=== PATIENT | female | born 1940 | race Caucasian/White ===

== ENCOUNTER 2018-01-12 20:06 | Emergency (ER) | payer OTHER ==
[2018-01-12] MEDS: ONDANSETRON HCL/PF 4 MG/ 2ML VIAL IVP ONE (20:40)
--- NOTE | 2018-01-12 20:42 | ED Physician Documentation ---
Abdominal Pain - HISTORIAN Historian: patient, child - HPI Stated Complaint: N/V Chief Complaint: Abdominal Pain Additonal Information: n/e onset 2 d ago eaten very little since dt emesis all food fluids. ate warmed up moldovan approx 20 hrs prior to onset. pt and john say sl more confused than prev but appears quite alert and oriented and ess good historian. also no bm since onset nausea and usually has bm qod Onset: days ago (2) Duration: waxing, waning Timing: other (just not better) Context: bad food (possibly. no known exposure to persons w similar). denies: out of country travel Severity: moderate Quality: pain (lt upper aabd quadrant) Associated Symptoms: nausea, vomiting. denies: coffee ground emesis, bloody emesis, diarrhea Exacerbated by: food Relieved by: remaining still. denies: food Further Comments: yes (is diabetic no insulin today) - ROS CONST: other (as above) GI/: dark urine. denies: black stools, bloody urine, bloody stools, problems urinating CVS/RESP: none. denies: palpitations, shortness of breath, hurts to breath, cough MS/SKIN/LYMPH: none NEURO/PSYCH: none - SOCIAL HX Smoking History: less than 1 pack/day Alcohol Use: none Drug Use: none - FAMILY HX Family History: no significant history - PAST HX Past History: other (DM HTN DJD HI CHOL DEPRESSION INT CONFUSION) Surgeries/Procedures: other (CABG X 3 KNEE REPL) Home Medications: Ambulatory Orders Medication Instructions Recorded Aspirin [Yon] 81 mg PO DAILY 01/12/18 Calcium Carbonate [Calcium] 600 mg PO DAILY 01/12/18 Cholecalciferol [Vitamin D-3] 5,000 unit PO DAILY 01/12/18 Docusate Sodium [Colace] 100 mg PO DAILY PRN 01/12/18 Furosemide [Lasix] 20 mg PO DAILY 01/12/18 Lisinopril [Zestril] 10 mg PO DAILY 01/12/18 Allergies/Adverse Reactions: Allergies Allergy/AdvReac Type Severity Reaction Status Date / Time No Known Drug Allergies Allergy Verified 01/12/18 20:31 - VITAL SIGNS Vital Signs: Vital Signs Temp Pulse Resp BP Pulse Ox 97.9 F 76 18 173/78 92 01/12/18 20:06 01/12/18 20:06 01/12/18 20:06 01/12/18 20:06 01/12/18 20:06 - REVIEWED ASSESSMENTS Nursing Assessment Reviewed: Yes Vitals Reviewed: Yes ED Results Lab/Radiology - Lab Results Lab Results: Lab Results 01/12/18 01/12/18 01/12/18 21:01 21:01 21:00 WBC 6.10 K/ul K/ul (4.00-12.00) RBC 4.78 M/ul M/ul (3.90-5.20) Hgb 13.7 g/dL g/dL (12.0-16.0) Hct 41.6 % % (34.5-46.5) MCV 87.1 fl fl (80.0-100.0) MCH 28.8 pg pg (28.0-34.0) MCHC 33.0 g/dL g/dL (30.0-36.0) RDW 13.6 % % (11.3-14.3) Plt Count 171 K/mm3 K/mm3 (130-400) Neut % (Auto) 83.9 % H % (39.0-79.0) Lymph % (Auto) 11.2 % L % (16.0-50.0) [place] % (Auto) 2.8 % % (0.0-11.0) Eos % (Auto) 1.3 % % (0.0-6.8) Baso % (Auto) 0.2 (0.0-1.5) Neut # (Auto) 5.1 # k/uL # k/uL (1.4-7.7) Lymph # (Auto) 0.7 # k/uL # k/uL (0.6-4.0) [place] # (Auto) 0.2 # k/uL # k/uL (0.0-0.9) Eos # (Auto) 0.1 # k/uL # k/uL (0.0-0.6) Baso # (Auto) 0.0 # k/uL # k/uL (0.0-0.5) Reactive Lymphs % 0.6 % % (0.0-5.0) Reactive Lymphs # 0.0 # k/uL # k/uL (0.0-0.8) Sodium 135 mmol/L L mmol/L (136-145) Potassium 4.7 mmol/L mmol/L (3.5-5.1) Chloride 94 mmol/L L mmol/L (98-107) Carbon Dioxide 31 mmol/L H mmol/L (22-30) BUN 15 mg/dL mg/dL (7-17) Creatinine 0.70 mg/dL mg/dL (0.52-1.04) Estimated Creat Clear 113 Est GFR ( Amer) > 60 (60 - ) Est GFR (Non-Af Amer) > 60 (60 - ) Glucose 199 mg/dL H mg/dL (74-106) Calcium 9.6 mg/dL mg/dL (8.4-10.2) Total Bilirubin 1.3 mg/dL mg/dL (0.2-1.3) AST 51 U/L H U/L (15-46) ALT 38 U/L U/L (13-69) Alkaline Phosphatase 103 U/L U/L (38-126) Total Protein 7.1 g/dL g/dL (6.3-8.2) Albumin 3.9 g/dL g/dL (3.5-5.0) Lipase 17 U/L L U/L (23-300) - Orders Orders: ED Orders Category Date Time Status Place IV Lock 1T Care 01/12/18 20:38 Active ABD SERIES PA CHEST [RAD] Stat Exams 01/12/18 Taken CBC/PLATELET/DIFF Routine Lab 01/12/18 21:01 Completed CMP Routine Lab 01/12/18 21:01 Completed LIPASE Stat Lab 01/12/18 21:00 Completed URINALYSIS Routine Lab 01/12/18 Ordered 0.9 % Sodium Chloride [Normal Saline] 1,000 ml Med 01/12/18 21:00 Ordered IV Q10H Bisacodyl [Dulcolax] Med 01/12/18 22:29 Discontinued 10 mg RC .STK-MED ONE Bisacodyl [Dulcolax] Med 01/12/18 23:15 Once 10 mg RC NOW ONE Ondansetron HCl Rapdis [Zofran Odt] Med 01/12/18 23:16 Once 4 mg PO TAKE HOME ONE Ondansetron HCl/Pf [Zofran 4 mg/2 ml] Med 01/12/18 20:37 Discontinued 4 mg IVP NOW ONE Abdominal Pain Physical Exam - Physical Exam General Appearance: mild distress. No: anxious, lethargic EENT: eye inspection normal NECK: normal inspection, thyroid normal. No: carotid bruit RESPIRATORY: no resp distress, chest non-tender, breath sounds normal. No: wheezes, rales, rhonchi CVS: reg rate & rhythm, heart sounds normal ABDOMEN: soft, tenderness (ULQ), decreased BS SKIN: warm/dry, normal color. No: cyanosis, diaphoresis, jaundice EXTREMITIES: non-tender, normal range of motion, no edema NEURO: oriented X3, motor nml, sensation nml, mood/affect nml Vital Signs: Vital Signs Temp Pulse Resp BP Pulse Ox 97.9 F 76 18 173/78 92 01/12/18 20:06 01/12/18 20:06 01/12/18 20:06 01/12/18 20:06 01/12/18 20:06 Discharge Clincal Impression: un dx abd pain, xs gas feces, dehydration Referrals: Mercedez March MD [Primary Care Provider] - 2 Days Comments: home dulcolax=-john will adm and stay w/pt Condition: Good Disposition: 01 HOME, SELF-CARE Decision to Admit: NO Decision Time: 23:18
[2018-01-12 21:06] LABS: BASOPHILS % 0.2 (0.0-1.5); EOSINOPHILS % 1.3 % (0.0-6.8); MEAN CORPUSCULAR HEMOGLOBIN 28.8 pg (28.0-34.0); MEAN CORPUSCULAR VOLUME 87.1 fl (80.0-100.0); MONOCYTES % 2.8 % (0.0-11.0); NEUTROPHILS # 5.1 # k/uL (1.4-7.7)
[2018-01-12] MEDS: 0.9 % SODIUM CHLORIDE 1,000 ML IV SCH (21:20)
[2018-01-12 21:35] LABS: eGFR (African) > 60; eGFR (Non-African) > 60
[2018-01-12] MEDS: BISACODYL 10 MG SUPP.RECT RC ONE ×2 (22:59→23:19)
[2018-01-12] MEDS: ONDANSETRON HCL 4 MG TAB.RAPDIS ONE (23:20)
[2018-01-12] MEDS: ONDANSETRON HCL 4 MG TAB.RAPDIS PO ONE (23:20)
[2018-01-12 23:50] VITALS: BP 185/95
[2018-01-12] MEDS: 0.9 % SODIUM CHLORIDE 1,000 ML IV ONE (23:50)
--- NOTE | 2018-01-13 06:45 | Diagnostic Imaging Report ---
LINO MOLINA [facility] [address] [facility] [address] [address] Report Submission Date: Jan 12, 2018 9:38:36 PM CDT Patient Study Name: SILVESTRE OCHOA Date: Jan 12, 2018 9:14:10 PM CDT Modality Type: DX Gender: F Description: ABDOMEN : 40 Institution: [facility] Physician: LINO MOLINA Abdominal obstructive series with AP chest History: Abdominal pain and nausea. Findings: The heart size is normal. There is atherosclerosis of the aorta. Wire sternal sutures are in place. The lungs are hyperinflated. No acute infiltrate. No pleural effusion or pneumothorax. The bowel gas pattern is normal without evidence of obstruction. Mild retained stool is present. There is levoscoliosis and lumbar spine with multilevel degenerative change. There is extensive vascular calcifications. Impression: 1. No acute pulmonary disease. 2. Nonobstructive bowel gas pattern. Electronically signed on Jan 12, 2018 9:38:36 PM CDT by: Roldan ARMENTA
[2018-01-13 06:59] LABS: APPEARANCE,URINE CLEAR (CLEAR); COLOR,URINE AMBER (YELLOW); OCCULT BLOOD,URINE NEGATIVE (NEGATIVE); PH URINE 8.5 (5.0 - 8.0); UROBILINOGEN URINE 0.2 Eu (0.2-1.0)
== END 2018-01-12 23:21 | disposition home or self-care (01) ==
LOC: ED 20:06
DX: E86.0 Dehydration (principal); R10.9 Unspecified abdominal pain; R14.0 Abdominal distension (gaseous); E11.9 Type 2 diabetes mellitus without complications; I10 Essential (primary) hypertension; E78.5 Hyperlipidemia, unspecified; F17.210 Nicotine dependence, cigarettes, uncomplicated
CPT/HCPCS: 74022; 80053; 81002; 83690; 85025; A9270; J2405; J7030; 96360; 96374; 99283; S1016

== ENCOUNTER 2018-01-18 18:00 | Inpatient (IN) | payer OTHER ==
[2018-01-18] MEDS ORDERED: DOCUSATE SODIUM 100 MG CAPSULE PO PRN (18:56)
[2018-01-18] MEDS ORDERED: IPRATROPIUM BROMIDE 0.2 MG IH SCH (19:00)
[2018-01-18] MEDS ORDERED: IPRATROPIUM/ALBUTEROL SULFATE 3 ML AMPUL.NEB NEB PRN (19:04)
--- NOTE | 2018-01-18 19:10 | History and Physical Report ---
History of Present Illnes - History of Present Illness Reason for Visit: Weakness History of Present Illness: Patient was seen in clinic last week for progressive weakness for past few months as well as some falls. The patient, her daughter, and I decided we would try to do home health. If that failed, next step would be admission to [facility]. She had been seen in the ER for constipation. She went home and ended up having a TIA. She was tranported to [facility] with L facial droop and slurred speech. CT showed old lacunar infarct that was not consistent with patient symptoms. MRI was negative for acute event. SABA/bubble study normal. She was started on ASA and lipitor. Insulin was adjusted for BS control with here DM. MRA of neck showed 50% stenosis of R ICA and less than 50% of L ICA. ABCD2 score was 7 (17% risk in next 90 days). Given lack of significant atherosclerosis, they did not initiate dual antiplatelet therapy. Neurology f/u in 4 weeks. Her atenolol was discontinued because she had 1st degree AV block and bradycardia. They want her to f/u with Dr. Weinstein in several weeks. Lisinopril was increased from 10 to 20 mg. Chronic lasix therapy continued. - Past Medical History Cardiac: CAD, CHF (HFpEF), HTN, Hyperlipidemia Pulmonary: COPD Endocrine: Diabetes, Osteoporosis, Other (Vitamin D deficiency) - Past Surgical History Past Surgical History: CABG (x3 in 2001), Cataract Removal, Hysterectomy, Other (Back surgery), Total Knee Replacement (L), Other (B CTR) - Past Family History Mother Family History: CAD, Father Family History: - Past Social History Smoke: 1 pack per day, Quit (1 week ago) Alcohol: None Drugs: None Lives: Alone Domestic Violence: Negative - Health Maintenance Health Maintenance: Cholesterol, Influenza Vaccine, Pneumococcal Vaccine, DEXA. denies: Colonoscopy Influenza Vaccine: Current for this Influenza Season Pneumonia Vaccine: Yes Resuscitation Status: Resusciation Status Resuscitation Status Full Code Review of Systems - Review of Systems Constitutional: Weakness. negative: Fever Eyes: negative: pain ENT: negative: Ear Pain, Nose Congestion Respiratory: negative: Cough, Shortness of Breath Cardiovascular: negative: Chest Pain, Palpitations Gastrointestinal: negative: Nausea, Vomiting, Abdominal Pain, Constipation Genitourinary: negative: Dysuria, Frequency Musculoskeletal: negative: Neck Pain Skin: negative: Rash Neurological: Weakness - Medications/Allergies Allergies/Adverse Reactions: Allergies Allergy/AdvReac Type Severity Reaction Status Date / Time No Known Drug Allergies Allergy Verified 01/12/18 20:31 Home Medications: Home Medications Acetaminophen [Tylenol] 650 mg PO Q4 PRN 01/18/18 Alendronate Sodium [Fosamax] 70 mg PO WEEK 01/18/18 Ferrous Sulfate [Feosol] 325 mg PO DAILY 01/18/18 Insulin Glargine,Hum.rec.anlog [Lantus Solostar] 15 units INJ HS 01/18/18 Polyethylene Glycol 3350 [Miralax] 17 gm PO 1100 01/18/18 Sennosides/Docusate Sodium [Docusate Sodium-Senna Tablet] 1 tab PO BID 01/18/18 Current Inpatient Medications: Current Inpatient Medications Acetaminophen (Tylenol) 650 mg PO Q4 PRN PRN Reason: PAIN Albuterol/Ipratropium (Duoneb) 3 ml NEB Q4 PRN PRN Reason: Wheezing Alendronate Sodium (Fosamax) 70 mg PO WEEK [facility] Aspirin (Aspirin) 81 mg PO DAILY [facility] Atorvastatin Calcium (Lipitor) 40 mg PO HS [facility] Calcium/Vitamin D (Caltrate With Vit D-3) 1 each PO DAILY [facility] Cholecalciferol (Vitamin D-3) 1,000 unit PO DAILY [facility] Docusate Sodium (Colace) 100 mg PO DAILY PRN PRN Reason: DIRECTED BY 'S ORDER Enoxaparin Sodium (Lovenox) 40 mg SQ QD [facility] Stop: 02/01/18 19:59 Ferrous Sulfate (Feosol) 325 mg PO 1100 [facility] Furosemide (Lasix) 20 mg PO DAILY [facility] Insulin Detemir (Levemir Flex-Pen) 15 unit SQ HS [facility] Lisinopril (Prinivil) 20 mg PO DAILY [facility] Miscellaneous (Chem Sticks) 1 each CHEMX2 [facility] Multivitamins (Tab-A-[place]) 1 each PO DAILY [facility] Paroxetine HCl (Paxil) 20 mg PO DAILY [facility] Polyethylene Glycol (Miralax) 17 gm PO 1100 [facility] Senna/Docusate Sodium (Senna Plus Tablet) each PO BID [facility] Exam - Exam Vital Signs: Vital Signs (72 hours) 01/18/18 18:21 Temperature 97.9 F Pulse Rate [ 64 Left Pulse ox] Respiratory 20 Rate Blood Pressure 177/79 [Left Arm] O2 Sat by Pulse 91 L Oximetry General: Alert, Oriented to Person, Oriented to Place, Oriented to Time, Cooperative, No acute distress HEENT: Atraumatic, PERRLA, EOMI, Mouth Mucous membr. moist/[place] Neck: Normal Range of Motion Lungs: Clear to auscultation, Normal air movement, Speaks full Sentences Cardiovascular: Regular rate Abdomen: Normal bowel sounds, Soft, No tenderness Integumentary: Normal Extremities: No edema Neurological: Cranial nerves 3-12 NL, Reflexes 2+, Generalized Weakness Psych/Mental Status: Mental status NL, Mood NL, Appropriate Affect, Intact Judgment Assessment/Plan - Assessment/Plan (1) Weakness Status: Acute Current Visit: Yes Plan: Will admit to SNF for PT/OT. Patient tells me her family plans to move her to [facility] when she is discharged from here. (2) TIA (transient ischemic attack) Status: Acute Current Visit: Yes Qualifiers: Transient cerebral ischemia type: unspecified Qualified Code(s): G45.9 - Transient cerebral ischemic attack, unspecified Plan: Patient at high risk for another TIA. Will continue ASA and lipitor. Work to control BP and BS. She has quit smoking last week - will continue to encourage patient to refrain from smoking. She reports gum and patches have not helped in the past. (3) Diabetes mellitus Status: Chronic Current Visit: No Qualifiers: Diabetes mellitus type: type 2 Diabetes mellitus complication status: with unspecified complications Diabetes mellitus truck terminal manager insulin use: with snf use Qualified Code(s): E11.8 - Type 2 diabetes mellitus with unspecified complications; Z79.4 - termite control service representative (current) use of insulin; Z79.4 - senior care ( current) use of insulin; Z79.4 - termite control service representative (current) use of insulin; Z79.4 - senior care (current) use of insulin Plan: Will monitor BS. Hold off SSI for now. (4) HTN (hypertension) Status: Chronic Current Visit: Yes Qualifiers: Hypertension type: essential hypertension Qualified Code(s): I10 - Essential (primary) hypertension Plan: Watch BP closely. Add chlorthalidone if needed. Plan to see cardiology in 2 weeks in follow up. VTE Assessment - RISK FACTOR SCORE VTE RISK FACTOR SCORES: AGE OVER 60 YEARS, SMOKER - RISK VTE MODERATE RISK: SCORE OF 2 (RISK PROXIMAL DVT 2-4%) PROPHYAXIS NEEDED
[2018-01-18 20:28] VITALS: BMI 29.0
[2018-01-18] MEDS ORDERED: SENNOSIDES/DOCUSATE SODIUM 1 EACH TABLET PO SCH (21:00)
[2018-01-18] MEDS ORDERED: INSULIN GLARGINE HUM REC ANLOG 15 UNIT INJ SCH (21:00)
[2018-01-18] MEDS ORDERED: HALOPERIDOL LACTATE 5 MG/ML VIAL IM ONE ×3 (21:34→21:35)
[2018-01-18] MEDS ORDERED: LORazepam 2 MG/ML VIAL IM ONE (21:58)
[2018-01-18] MEDS ORDERED: LORazepam 2 MG/ML VIAL ONE (21:58)
[2018-01-18] MEDS ORDERED: LORazepam 2 MG/ML VIAL IM PRN (22:00)
[2018-01-18] MEDS: NICOTINE 21mg 1 EACH PATCH.TD24 TD SCH (22:35)
[2018-01-18] MEDS: ATORVASTATIN CALCIUM 80 MG TABLET PO SCH ×2 (22:44→22:46)
[2018-01-18] MEDS: INSULIN DETEMIR 100 UNIT/ML 3ML PEN.INJCTR SQ SCH ×2 (22:45→22:46)
[2018-01-18] MEDS: FERROUS SULFATE 325 MG TABLET PO SCH (22:46)
[2018-01-18] MEDS: ENOXAPARIN SODIUM 40 MG/0.4 ML DISP.SYRIN SQ SCH (22:46)
[2018-01-19] MEDS ORDERED: ASPIRIN EC 81 MG TABLET.DR ONE (04:49)
[2018-01-19] MEDS ORDERED: FERROUS SULFATE 325 MG PO SCH (09:00)
[2018-01-19] MEDS ORDERED: CALCIUM CARBONATE 600 MG PO SCH (09:00)
[2018-01-19] MEDS ORDERED: LISINOPRIL 20 MG PO SCH (09:00)
[2018-01-19] MEDS ORDERED: PAROXETINE HCL 20 MG PO SCH (09:00)
[2018-01-19] MEDS ORDERED: Non-Formulary 1 EACH (Atorvastatin Calcium [Atorvastatin Calcium] 40 MG) PO SCH (09:00)
[2018-01-19] MEDS: ASPIRIN 81 MG CHEW TAB PO SCH (10:09)
[2018-01-19] MEDS: FUROSEMIDE 20 MG TABLET PO SCH (10:10)
[2018-01-19] MEDS: LISINOPRIL 20 MG TABLET PO SCH (10:10)
[2018-01-19] MEDS: MULTIVITAMIN 1 EACH TABLET PO SCH (10:10)
[2018-01-19] MEDS: NICOTINE 21mg 1 EACH PATCH.TD24 TD SCH (10:10)
[2018-01-19] MEDS: PARoxetine HCL 10 MG TABLET PO SCH (10:10)
[2018-01-19] MEDS ORDERED: CALCIUM/VIT D 500MG/200IU TABLET ONE (10:11)
[2018-01-19] MEDS: CHOLECALCIFEROL (VIT D3) 1,000 UNIT TABLET PO SCH (10:11)
[2018-01-19] MEDS: CALCIUM CARB 600MG/VIT D-3 400 1 EACH TABLET PO SCH (10:13)
[2018-01-19] MEDS: FERROUS SULFATE 325 MG TABLET PO SCH (13:00)
[2018-01-19] MEDS: POLYETHYLENE GLYCOL 3350 17 GM POWD.PACK PO SCH (13:04)
[2018-01-19] MEDS: ENOXAPARIN SODIUM 40 MG/0.4 ML DISP.SYRIN SQ SCH (20:26)
[2018-01-19] MEDS: SENNOSIDES/DOCUSATE SODIUM 1 EACH TABLET PO SCH (20:27)
[2018-01-19] MEDS: ATORVASTATIN CALCIUM 80 MG TABLET PO SCH (20:27)
[2018-01-19] MEDS: INSULIN DETEMIR 100 UNIT/ML 3ML PEN.INJCTR SQ SCH (20:28)
[2018-01-19] MEDS: ACETAMINOPHEN 325 MG TABLET PO PRN (20:37)
[2018-01-20] MEDS ORDERED: CALCIUM/VIT D 500MG/200IU TABLET ONE (09:34)
[2018-01-20] MEDS: MULTIVITAMIN 1 EACH TABLET PO SCH (09:37)
[2018-01-20] MEDS: CALCIUM CARB 600MG/VIT D-3 400 1 EACH TABLET PO SCH (09:37)
[2018-01-20] MEDS: CHOLECALCIFEROL (VIT D3) 1,000 UNIT TABLET PO SCH (09:38)
[2018-01-20] MEDS: ASPIRIN 81 MG CHEW TAB PO SCH (09:38)
[2018-01-20] MEDS: PARoxetine HCL 10 MG TABLET PO SCH (09:38)
[2018-01-20] MEDS: SENNOSIDES/DOCUSATE SODIUM 1 EACH TABLET PO SCH ×2 (09:38→21:08)
[2018-01-20] MEDS: NICOTINE 21mg 1 EACH PATCH.TD24 TD SCH (09:38)
[2018-01-20] MEDS: FUROSEMIDE 20 MG TABLET PO SCH (09:38)
[2018-01-20] MEDS: LISINOPRIL 20 MG TABLET PO SCH (09:38)
[2018-01-20] MEDS: ACETAMINOPHEN 325 MG TABLET PO PRN (11:01)
[2018-01-20] MEDS: FERROUS SULFATE 325 MG TABLET PO SCH (11:02)
[2018-01-20] MEDS: POLYETHYLENE GLYCOL 3350 17 GM POWD.PACK PO SCH (11:02)
[2018-01-20] MEDS: ATORVASTATIN CALCIUM 80 MG TABLET PO SCH (21:07)
[2018-01-20] MEDS: ENOXAPARIN SODIUM 40 MG/0.4 ML DISP.SYRIN SQ SCH (21:08)
[2018-01-20] MEDS: INSULIN DETEMIR 100 UNIT/ML 3ML PEN.INJCTR SQ SCH (21:09)
[2018-01-21] MEDS: PARoxetine HCL 10 MG TABLET PO SCH (10:32)
[2018-01-21] MEDS: SENNOSIDES/DOCUSATE SODIUM 1 EACH TABLET PO SCH ×2 (10:32→19:53)
[2018-01-21] MEDS: LISINOPRIL 20 MG TABLET PO SCH (10:33)
[2018-01-21] MEDS: FUROSEMIDE 20 MG TABLET PO SCH (10:33)
[2018-01-21] MEDS: CALCIUM CARB 600MG/VIT D-3 400 1 EACH TABLET PO SCH (10:33)
[2018-01-21] MEDS: NICOTINE 21mg 1 EACH PATCH.TD24 TD SCH (10:33)
[2018-01-21] MEDS: MULTIVITAMIN 1 EACH TABLET PO SCH (10:33)
[2018-01-21] MEDS: ASPIRIN 81 MG CHEW TAB PO SCH (10:33)
[2018-01-21] MEDS: CHOLECALCIFEROL (VIT D3) 1,000 UNIT TABLET PO SCH (10:33)
[2018-01-21] MEDS: FERROUS SULFATE 325 MG TABLET PO SCH (11:57)
[2018-01-21] MEDS: POLYETHYLENE GLYCOL 3350 17 GM POWD.PACK PO SCH (11:57)
[2018-01-21] MEDS: ACETAMINOPHEN 325 MG TABLET PO PRN (11:59)
[2018-01-21] MEDS: ENOXAPARIN SODIUM 40 MG/0.4 ML DISP.SYRIN SQ SCH (19:52)
[2018-01-21] MEDS: ATORVASTATIN CALCIUM 80 MG TABLET PO SCH (19:52)
[2018-01-21] MEDS: INSULIN DETEMIR 100 UNIT/ML 3ML PEN.INJCTR SQ SCH (19:53)
[2018-01-22] MEDS: ASPIRIN 81 MG CHEW TAB PO SCH (08:56)
[2018-01-22] MEDS: NICOTINE 21mg 1 EACH PATCH.TD24 TD SCH (08:56)
[2018-01-22] MEDS: SENNOSIDES/DOCUSATE SODIUM 1 EACH TABLET PO SCH ×2 (08:59→21:56)
[2018-01-22] MEDS: CHOLECALCIFEROL (VIT D3) 1,000 UNIT TABLET PO SCH (08:59)
[2018-01-22] MEDS: MULTIVITAMIN 1 EACH TABLET PO SCH (08:59)
[2018-01-22] MEDS: LISINOPRIL 20 MG TABLET PO SCH (08:59)
[2018-01-22] MEDS: PARoxetine HCL 10 MG TABLET PO SCH (08:59)
[2018-01-22] MEDS: FUROSEMIDE 20 MG TABLET PO SCH (08:59)
[2018-01-22] MEDS ORDERED: CALCIUM/VIT D 500MG/200IU TABLET ONE (09:04)
[2018-01-22] MEDS: CALCIUM CARB 600MG/VIT D-3 400 1 EACH TABLET PO SCH (09:05)
[2018-01-22] MEDS: POLYETHYLENE GLYCOL 3350 17 GM POWD.PACK PO SCH (11:49)
[2018-01-22] MEDS: FERROUS SULFATE 325 MG TABLET PO SCH (11:49)
[2018-01-22] MEDS: ATORVASTATIN CALCIUM 80 MG TABLET PO SCH (21:54)
[2018-01-22] MEDS: INSULIN DETEMIR 100 UNIT/ML 3ML PEN.INJCTR SQ SCH (21:54)
[2018-01-22] MEDS: ENOXAPARIN SODIUM 40 MG/0.4 ML DISP.SYRIN SQ SCH (21:56)
[2018-01-22] MEDS: LORazepam 2 MG/ML VIAL IM PRN (23:04)
[2018-01-22] MEDS ORDERED: HALOPERIDOL LACTATE 5 MG/ML VIAL IM ONE ×2 (23:36→23:46)
--- NOTE | 2018-01-23 08:39 | Inpatient Progress Note ---
Subjective - Required Recertification Statement I anticipate X number of days because-include discharge plan: 10 - Review of Systems Subjective: Patient had episode of being more confused yesterday afternoon. By evening was panicked, "lost", confused, agitated. Objective - Exam Vitals and I&O: Vital Signs Temp 97.8 F 01/22/18 21:00 Pulse 102 H 01/22/18 21:00 Resp 22 01/22/18 21:00 BP 130/64 01/22/18 21:00 Pulse Ox 92 01/22/18 21:00 Intake & Output 01/22/18 01/22/18 01/23/18 11:59 23:59 11:59 Intake Total 240 900 Output Total 0 0 Balance 240 900 Intake: Oral 240 900 Output: Urine 0 Stool 0 Other: Voiding Method Toilet Toilet # Voids 3 3 1 # Bowel Movements 0 General: Alert, Oriented to Person, Cooperative. No: Oriented to Place, Oriented to Time Lungs: Clear to auscultation, Normal air movement, Speaks full Sentences Cardiovascular: Regular rate Assessment/Plan - Assessment/Plan (1) Weakness Status: Acute Current Visit: Yes (2) TIA (transient ischemic attack) Status: Acute Current Visit: Yes Qualifiers: Transient cerebral ischemia type: unspecified Qualified Code(s): G45.9 - Transient cerebral ischemic attack, unspecified (3) Diabetes mellitus Status: Chronic Current Visit: No Qualifiers: Diabetes mellitus type: type 2 Diabetes mellitus complication status: with unspecified complications Diabetes mellitus care home insulin use: with intermodal dispatcher use Qualified Code(s): E11.8 - Type 2 diabetes mellitus with unspecified complications; Z79.4 - snf (current) use of insulin; Z79.4 - snf ( current) use of insulin; Z79.4 - snf (current) use of insulin; Z79.4 - snf (current) use of insulin (4) HTN (hypertension) Status: Chronic Current Visit: Yes Qualifiers: Hypertension type: essential hypertension Qualified Code(s): I10 - Essential (primary) hypertension (5) Delirium Status: Acute Current Visit: Yes Plan: Plan CBC, CMP, and urine testing. STart seroquel 12.5 mg bid. No po haldol on formulary. Watch closely. Medications reviewed - I did not identify any concerns.
[2018-01-23 09:11] LABS: BASOPHILS % 0.4 (0.0-1.5); EOSINOPHILS % 4.1 % (0.0-6.8); MEAN CORPUSCULAR HEMOGLOBIN 29.6 pg (28.0-34.0); MEAN CORPUSCULAR VOLUME 87.5 fl (80.0-100.0); MONOCYTES % 5.2 % (0.0-11.0); NEUTROPHILS # 4.1 # k/uL (1.4-7.7)
[2018-01-23 09:31] LABS: eGFR (African) > 60; eGFR (Non-African) > 60
[2018-01-23] MEDS: LISINOPRIL 20 MG TABLET PO SCH (14:54)
[2018-01-23] MEDS: FUROSEMIDE 20 MG TABLET PO SCH (14:54)
[2018-01-23] MEDS: ASPIRIN 81 MG CHEW TAB PO SCH (14:54)
[2018-01-23] MEDS: PARoxetine HCL 10 MG TABLET PO SCH (14:54)
[2018-01-23] MEDS: SENNOSIDES/DOCUSATE SODIUM 1 EACH TABLET PO SCH ×2 (14:54→21:54)
[2018-01-23] MEDS: CALCIUM CARB 600MG/VIT D-3 400 1 EACH TABLET PO SCH (14:54)
[2018-01-23] MEDS: MULTIVITAMIN 1 EACH TABLET PO SCH (14:54)
[2018-01-23] MEDS: QUEtiapine FUMARATE 25 MG TABLET PO SCH ×2 (14:54→22:12)
[2018-01-23] MEDS: CHOLECALCIFEROL (VIT D3) 1,000 UNIT TABLET PO SCH (14:55)
[2018-01-23] MEDS: FERROUS SULFATE 325 MG TABLET PO SCH (14:55)
[2018-01-23] MEDS: POLYETHYLENE GLYCOL 3350 17 GM POWD.PACK PO SCH (14:55)
[2018-01-23] MEDS: NICOTINE 21mg 1 EACH PATCH.TD24 TD SCH (16:42)
[2018-01-23] MEDS: ENOXAPARIN SODIUM 40 MG/0.4 ML DISP.SYRIN SQ SCH (21:52)
[2018-01-23] MEDS: ATORVASTATIN CALCIUM 80 MG TABLET PO SCH (21:53)
[2018-01-23] MEDS: INSULIN DETEMIR 100 UNIT/ML 3ML PEN.INJCTR SQ SCH (22:07)
[2018-01-24 07:37] LABS: APPEARANCE,URINE CLOUDY (CLEAR); COLOR,URINE YELLOW (YELLOW); OCCULT BLOOD,URINE 2+ (NEGATIVE)
--- NOTE | 2018-01-24 09:54 | Inpatient Progress Note ---
Subjective - Required Recertification Statement I anticipate X number of days because-include discharge plan: 10 - Review of Systems Subjective: Patient doing better on seroquel 12.5 mg bid. Urine came back with signs of infection (+ nitrites). Objective - Exam Vitals and I&O: Vital Signs Temp 96.6 F L 01/23/18 21:00 Pulse 70 01/23/18 21:00 Resp 16 01/23/18 21:00 BP 125/65 01/23/18 21:00 Pulse Ox 96 01/23/18 21:00 Intake & Output 01/23/18 01/23/18 01/24/18 11:59 23:59 11:59 Intake Total 380 0 Balance 380 0 Intake: Oral 380 0 Other: Voiding Method Diaper Incontinent # Voids 1 2 0 General: Alert, Oriented to Person, Oriented to Place, Oriented to Time, Cooperative, No acute distress Lungs: Clear to auscultation, Normal air movement, Speaks full Sentences Cardiovascular: Regular rate - Results Results: Laboratory Results WBC 6.60 K/ul (4.00-12.00) 01/23/18 08:55 RBC 4.49 M/ul (3.90-5.20) 01/23/18 08:55 Hgb 13.3 g/dL (12.0-16.0) 01/23/18 08:55 Hct 39.2 % (34.5-46.5) 01/23/18 08:55 MCV 87.5 fl (80.0-100.0) 01/23/18 08:55 MCH 29.6 pg (28.0-34.0) 01/23/18 08:55 MCHC 33.8 g/dL (30.0-36.0) 01/23/18 08:55 RDW 14.4 % (11.3-14.3) H 01/23/18 08:55 Plt Count 148 K/mm3 (130-400) 01/23/18 08:55 Neut % (Auto) 61.5 % (39.0-79.0) 01/23/18 08:55 Lymph % (Auto) 26.9 % (16.0-50.0) 01/23/18 08:55 [place] % (Auto) 5.2 % (0.0-11.0) 01/23/18 08:55 Eos % (Auto) 4.1 % (0.0-6.8) 01/23/18 08:55 Baso % (Auto) 0.4 (0.0-1.5) 01/23/18 08:55 Neut # (Auto) 4.1 # k/uL (1.4-7.7) 01/23/18 08:55 Lymph # (Auto) 1.8 # k/uL (0.6-4.0) 01/23/18 08:55 [place] # (Auto) 0.3 # k/uL (0.0-0.9) 01/23/18 08:55 Eos # (Auto) 0.3 # k/uL (0.0-0.6) 01/23/18 08:55 Baso # (Auto) 0.0 # k/uL (0.0-0.5) 01/23/18 08:55 Reactive Lymphs % 1.9 % (0.0-5.0) 01/23/18 08:55 Reactive Lymphs # 0.1 # k/uL (0.0-0.8) 01/23/18 08:55 Sodium 136 mmol/L (136-145) 01/23/18 08:55 Potassium 4.6 mmol/L (3.5-5.1) 01/23/18 08:55 Chloride 100 mmol/L (98-107) 01/23/18 08:55 Carbon Dioxide 26 mmol/L (22-30) 01/23/18 08:55 BUN 21 mg/dL (7-17) H 01/23/18 08:55 Creatinine 0.90 mg/dL (0.52-1.04) 01/23/18 08:55 Estimated Creat Clear 72 01/23/18 08:55 Est GFR ( Amer) > 60 (60-) 01/23/18 08:55 Est GFR (Non-Af Amer) > 60 (60-) 01/23/18 08:55 Glucose 119 mg/dL (74-106) H 01/23/18 08:55 Calcium 9.2 mg/dL (8.4-10.2) 01/23/18 08:55 Total Bilirubin 1.2 mg/dL (0.2-1.3) 01/23/18 08:55 AST 54 U/L (15-46) H 01/23/18 08:55 ALT 52 U/L (13-69) 01/23/18 08:55 Alkaline Phosphatase 81 U/L (38-126) 01/23/18 08:55 Total Protein 5.9 g/dL (6.3-8.2) L 01/23/18 08:55 Albumin 3.4 g/dL (3.5-5.0) L 01/23/18 08:55 Urine Color Yellow (YELLOW) 01/23/18 18:50 Urine Appearance Cloudy (CLEAR) H 01/23/18 18:50 Urine pH 6.0 (5.0 - 8.0) 01/23/18 18:50 Ur Specific [place] 1.025 (1.010-1.030) 01/23/18 18:50 Urine Protein 2+ mg/dL (NEGATIVE) H 01/23/18 18:50 Urine Ketones Trace mg/dL (NEGATIVE) H 01/23/18 18:50 Urine Occult Blood 2+ (NEGATIVE) H 01/23/18 18:50 Urine Nitrite Positive (NEGATIVE) H 01/23/18 18:50 Urine Bilirubin Negative (NEGATIVE) 01/23/18 18:50 Urine Urobilinogen 1.0 Eu (0.2-1.0) 01/23/18 18:50 Ur Leukocyte Esterase 1+ (NEGATIVE) H 01/23/18 18:50 Urine Glucose Negative mg/dL (NEGATIVE) 01/23/18 18:50 Assessment/Plan - Assessment/Plan (1) Weakness Status: Acute Current Visit: Yes (2) TIA (transient ischemic attack) Status: Acute Current Visit: Yes Qualifiers: Transient cerebral ischemia type: unspecified Qualified Code(s): G45.9 - Transient cerebral ischemic attack, unspecified (3) Diabetes mellitus Status: Chronic Current Visit: No Qualifiers: Diabetes mellitus type: type 2 Diabetes mellitus complication status: with unspecified complications Diabetes mellitus skilled nursing insulin use: with adjunct faculty for medical terminology use Qualified Code(s): E11.8 - Type 2 diabetes mellitus with unspecified complications; Z79.4 - FDC (current) use of insulin; Z79.4 - FDC ( current) use of insulin; Z79.4 - joint terminal attack controller (current) use of insulin; Z79.4 - joint terminal attack controller (current) use of insulin (4) HTN (hypertension) Status: Chronic Current Visit: Yes Qualifiers: Hypertension type: essential hypertension Qualified Code(s): I10 - Essential (primary) hypertension (5) Delirium Status: Acute Current Visit: Yes Plan: Improving. Cont. seroquel for now. Most likely due to UTI. (6) UTI (urinary tract infection) Status: Acute Current Visit: Yes Qualifiers: Urinary tract infection type: acute cystitis Hematuria presence: without hematuria Qualified Code(s): N30.00 - Acute cystitis without hematuria Plan: Await urine culture but start bactrim DS for 7 days. Suspect cause of delirium.
[2018-01-24] MEDS: SULFAMETHOXAZOLE/TRIMETHOPRIM 1 EACH TABLET PO SCH ×2 (10:31→20:47)
[2018-01-24] MEDS: FUROSEMIDE 20 MG TABLET PO SCH (10:31)
[2018-01-24] MEDS: MULTIVITAMIN 1 EACH TABLET PO SCH (10:31)
[2018-01-24] MEDS: FERROUS SULFATE 325 MG TABLET PO SCH (10:31)
[2018-01-24] MEDS: SENNOSIDES/DOCUSATE SODIUM 1 EACH TABLET PO SCH ×2 (10:31→20:49)
[2018-01-24] MEDS: QUEtiapine FUMARATE 25 MG TABLET PO SCH ×2 (10:32→20:50)
[2018-01-24] MEDS: CALCIUM CARB 600MG/VIT D-3 400 1 EACH TABLET PO SCH (10:32)
[2018-01-24] MEDS: ASPIRIN 81 MG CHEW TAB PO SCH (10:32)
[2018-01-24] MEDS: PARoxetine HCL 10 MG TABLET PO SCH (10:32)
[2018-01-24] MEDS: CHOLECALCIFEROL (VIT D3) 1,000 UNIT TABLET PO SCH (10:32)
[2018-01-24] MEDS: LISINOPRIL 20 MG TABLET PO SCH (10:32)
[2018-01-24] MEDS: NICOTINE 21mg 1 EACH PATCH.TD24 TD SCH (10:33)
[2018-01-24] MEDS: POLYETHYLENE GLYCOL 3350 17 GM POWD.PACK PO SCH (10:35)
[2018-01-24] MEDS: ATORVASTATIN CALCIUM 80 MG TABLET PO SCH (20:47)
[2018-01-24] MEDS: ENOXAPARIN SODIUM 40 MG/0.4 ML DISP.SYRIN SQ SCH (20:47)
[2018-01-24] MEDS: INSULIN DETEMIR 100 UNIT/ML 3ML PEN.INJCTR SQ SCH (20:52)
[2018-01-25] MEDS ORDERED: ALENDRONATE SODIUM 70 MG TABLET PO SCH (09:00)
[2018-01-25] MEDS: NICOTINE 21mg 1 EACH PATCH.TD24 TD SCH (09:38)
[2018-01-25] MEDS: FUROSEMIDE 20 MG TABLET PO SCH (09:38)
[2018-01-25] MEDS: ASPIRIN 81 MG CHEW TAB PO SCH (09:38)
[2018-01-25] MEDS: PARoxetine HCL 10 MG TABLET PO SCH (09:39)
[2018-01-25] MEDS: LISINOPRIL 20 MG TABLET PO SCH (09:40)
[2018-01-25] MEDS: CHOLECALCIFEROL (VIT D3) 1,000 UNIT TABLET PO SCH (09:40)
[2018-01-25] MEDS: QUEtiapine FUMARATE 25 MG TABLET PO SCH ×2 (09:40→19:45)
[2018-01-25] MEDS: MULTIVITAMIN 1 EACH TABLET PO SCH (09:40)
[2018-01-25] MEDS: SULFAMETHOXAZOLE/TRIMETHOPRIM 1 EACH TABLET PO SCH ×2 (09:41→19:44)
[2018-01-25] MEDS ORDERED: CALCIUM/VIT D 500MG/200IU TABLET ONE (09:43)
[2018-01-25] MEDS: SENNOSIDES/DOCUSATE SODIUM 1 EACH TABLET PO SCH ×2 (09:45→19:45)
[2018-01-25] MEDS: FERROUS SULFATE 325 MG TABLET PO SCH (11:07)
[2018-01-25] MEDS: CALCIUM/VIT D 500MG/200IU TABLET PO SCH (11:07)
[2018-01-25] MEDS: POLYETHYLENE GLYCOL 3350 17 GM POWD.PACK PO SCH (11:07)
[2018-01-25] MEDS: CALCIUM CARB 600MG/VIT D-3 400 1 EACH TABLET PO SCH (11:09)
[2018-01-25] MEDS: ACETAMINOPHEN 325 MG TABLET PO PRN ×2 (15:46→19:48)
[2018-01-25] MEDS: ATORVASTATIN CALCIUM 80 MG TABLET PO SCH (19:44)
[2018-01-25] MEDS: ENOXAPARIN SODIUM 40 MG/0.4 ML DISP.SYRIN SQ SCH (19:45)
[2018-01-25] MEDS: INSULIN DETEMIR 100 UNIT/ML 3ML PEN.INJCTR SQ SCH (19:48)
[2018-01-26] MEDS ORDERED: ALENDRONATE SODIUM 70 MG TABLET PO SCH (06:00)
[2018-01-26] MEDS: ACETAMINOPHEN 325 MG TABLET PO PRN ×2 (07:46→20:50)
[2018-01-26] MEDS: SULFAMETHOXAZOLE/TRIMETHOPRIM 1 EACH TABLET PO SCH ×2 (09:36→20:40)
[2018-01-26] MEDS: CHOLECALCIFEROL (VIT D3) 1,000 UNIT TABLET PO SCH (09:36)
[2018-01-26] MEDS: QUEtiapine FUMARATE 25 MG TABLET PO SCH ×2 (09:36→20:40)
[2018-01-26] MEDS: ASPIRIN 81 MG CHEW TAB PO SCH (09:37)
[2018-01-26] MEDS: PARoxetine HCL 10 MG TABLET PO SCH (09:37)
[2018-01-26] MEDS: MULTIVITAMIN 1 EACH TABLET PO SCH (09:37)
[2018-01-26] MEDS: LISINOPRIL 20 MG TABLET PO SCH (09:37)
[2018-01-26] MEDS: FUROSEMIDE 20 MG TABLET PO SCH (09:37)
[2018-01-26] MEDS: CALCIUM/VIT D 500MG/200IU TABLET PO SCH (09:37)
[2018-01-26] MEDS: SENNOSIDES/DOCUSATE SODIUM 1 EACH TABLET PO SCH ×2 (09:38→20:40)
[2018-01-26] MEDS: NICOTINE 21mg 1 EACH PATCH.TD24 TD SCH (09:38)
[2018-01-26] MEDS: POLYETHYLENE GLYCOL 3350 17 GM POWD.PACK PO SCH (10:09)
[2018-01-26] MEDS: FERROUS SULFATE 325 MG TABLET PO SCH (10:09)
--- NOTE | 2018-01-26 16:14 | Diagnostic Imaging Report ---
[facility]G [facility] [address] [facility] [address] [address] Report Submission Date: Jan 26, 2018 1:33:48 PM CDT Patient Study Name: SILVESTRE OCHOA Date: Jan 26, 2018 12:52:27 PM CDT Modality Type: DX Gender: F Description: CHEST : 40 Institution: [facility] Physician: [facility] WING/MED SURG Examination: Plain film left ribs History: FALL, LEFT SIDED RIB PAIN (Hx) / ITS.REASON s/p fall - L rib pain ( DICOM Hx) / ITS.REASON s/p fall - L rib pain (Pt comments) Findings: 2 views of the ribs demonstrates osteopenia. Articular degenerative changes. No fracture or dislocation. Underlying parenchymal without abnormality. Lumbar spine degenerative changes and curvature to the left. Impression: No rib fracture/abnormality. Electronically signed on Jan 26, 2018 1:33:48 PM CDT by: Doug ARMENTA
[2018-01-26] MEDS: INSULIN DETEMIR 100 UNIT/ML 3ML PEN.INJCTR SQ SCH (20:36)
[2018-01-26] MEDS: ATORVASTATIN CALCIUM 80 MG TABLET PO SCH (20:40)
[2018-01-26] MEDS: ENOXAPARIN SODIUM 40 MG/0.4 ML DISP.SYRIN SQ SCH (20:40)
[2018-01-26] MEDS: LORazepam 2 MG/ML VIAL IM PRN (23:02)
[2018-01-27] MEDS: SULFAMETHOXAZOLE/TRIMETHOPRIM 1 EACH TABLET PO SCH ×2 (13:34→20:29)
[2018-01-27] MEDS: ASPIRIN 81 MG CHEW TAB PO SCH (13:34)
[2018-01-27] MEDS: NICOTINE 21mg 1 EACH PATCH.TD24 TD SCH (13:34)
[2018-01-27] MEDS: LISINOPRIL 20 MG TABLET PO SCH (13:35)
[2018-01-27] MEDS: QUEtiapine FUMARATE 25 MG TABLET PO SCH ×2 (13:35→20:28)
[2018-01-27] MEDS: PARoxetine HCL 10 MG TABLET PO SCH (13:35)
[2018-01-27] MEDS: SENNOSIDES/DOCUSATE SODIUM 1 EACH TABLET PO SCH ×2 (13:35→20:27)
[2018-01-27] MEDS: FUROSEMIDE 20 MG TABLET PO SCH (13:35)
[2018-01-27] MEDS: CALCIUM/VIT D 500MG/200IU TABLET PO SCH (13:36)
[2018-01-27] MEDS: CHOLECALCIFEROL (VIT D3) 1,000 UNIT TABLET PO SCH (13:36)
[2018-01-27] MEDS: MULTIVITAMIN 1 EACH TABLET PO SCH (13:36)
[2018-01-27] MEDS: FERROUS SULFATE 325 MG TABLET PO SCH (13:36)
[2018-01-27] MEDS: POLYETHYLENE GLYCOL 3350 17 GM POWD.PACK PO SCH (13:37)
[2018-01-27] MEDS: ATORVASTATIN CALCIUM 80 MG TABLET PO SCH (20:26)
[2018-01-27] MEDS: ACETAMINOPHEN 325 MG TABLET PO PRN (20:26)
[2018-01-27] MEDS: ENOXAPARIN SODIUM 40 MG/0.4 ML DISP.SYRIN SQ SCH (20:27)
--- NOTE | 2018-01-27 21:02 | Diagnostic Imaging Report ---
[facility] [address] [facility] [address] [address] Report Submission Date: Jan 27, 2018 8:56:29 PM CDT Patient Study Name: SILVESTRE OCHOA Date: Jan 27, 2018 8:32:11 PM CDT Modality Type: DX Gender: F Description: UPPER EXTREMITY : 40 Institution: [facility] Physician: OLIVERIO ROME Right first finger, 3 views HISTORY Fall, injury, pain, swelling. FINDINGS The hand is demineralized. Fracture at the base of the first proximal phalanx is present. There is no dislocation or abnormal bone destruction. Remainder of the osseous, joint and soft tissue structures are normal. IMPRESSION First proximal phalangeal fracture. Osteopenia. Electronically signed on Jan 27, 2018 8:56:29 PM CDT by: Juarez ARMENTA
[2018-01-27] MEDS: INSULIN DETEMIR 100 UNIT/ML 3ML PEN.INJCTR SQ SCH (21:26)
--- NOTE | 2018-01-28 07:30 | Discharge Summary ---
Discharge Summary - Discharge Sumary History of Present Illness: Patient was seen in clinic last week for progressive weakness for past few months as well as some falls. The patient, her daughter, and I decided we would try to do home health. If that failed, next step would be admission to [facility]. She had been seen in the ER for constipation. She went home and ended up having a TIA. She was tranported to [facility] with L facial droop and slurred speech. CT showed old lacunar infarct that was not consistent with patient symptoms. MRI was negative for acute event. SABA/bubble study normal. She was started on ASA and lipitor. Insulin was adjusted for BS control with here DM. MRA of neck showed 50% stenosis of R ICA and less than 50% of L ICA. ABCD2 score was 7 (17% risk in next 90 days). Given lack of significant atherosclerosis, they did not initiate dual antiplatelet therapy. Neurology f/u in 4 weeks. Her atenolol was discontinued because she had 1st degree AV block and bradycardia. They want her to f/u with Dr. Weinstein in several weeks. Lisinopril was increased from 10 to 20 mg. Chronic lasix therapy Condition at Discharge: Stable Home Medications: Ambulatory Orders Medication Instructions Recorded Aspirin [Yon] 81 mg PO DAILY 01/12/18 Calcium Carbonate [Calcium] 600 mg PO DAILY 01/12/18 Cholecalciferol [Vitamin D-3] 1,000 unit PO DAILY 01/12/18 Docusate Sodium [Colace] 100 mg PO DAILY PRN 01/12/18 Furosemide [Lasix] 20 mg PO DAILY 01/12/18 Lisinopril [Zestril] 20 mg PO DAILY 01/12/18 Acetaminophen [Tylenol] 650 mg PO Q4 PRN 01/18/18 Alendronate Sodium [Fosamax] 70 mg PO WEEK 01/18/18 Ferrous Sulfate [Feosol] 325 mg PO DAILY 01/18/18 Insulin Glargine,Hum.rec.anlog 15 units INJ HS 01/18/18 [Lantus Solostar] Polyethylene Glycol 3350 [Miralax] 17 gm PO 1100 01/18/18 Sennosides/Docusate Sodium 1 tab PO BID 01/18/18 [Docusate Sodium-Senna Tablet] Ipratropium/Albuterol Sulfate 3 ml NEB Q4 PRN ampul.neb 01/25/18 [Duoneb] QUEtiapine FUMARATE [Seroquel] 12.5 mg PO BID tablet 01/25/18 QUEtiapine FUMARATE [Seroquel] 25 mg PO BID tablet 01/28/18 Consultations this Visit: None Procedures this Visit: None Allergies/Adverse Reactions: Allergies Allergy/AdvReac Type Severity Reaction Status Date / Time No Known Drug Allergies Allergy Verified 01/12/18 20:31 Discharge Summary: Patient had some sundowning and confusion during her admission. Haldol and ativan had to be used initially to get her calmed down. She was changed to seroquel. It was titrated up to 25 mg bid on discharge. She had 2 falls - one resulting in L rib tenderness with xrays negative. The 2nd fall resulted in fracture of R thumb proximal phalanx. Splint was placed. Urine was positive for E. Coli and treated with bactrim. Still having some mental status changes since she had her TIA/CVA. Transferred to [facility]. Hospital Course: Discharge Dx: Weakness. Confusion. TIA. Delium. R thumb fx. COPD. DM. Disposition
[2018-01-28] MEDS ORDERED: QUEtiapine FUMARATE 25 MG TABLET PO SCH (07:47)
--- NOTE | 2018-01-28 08:13 | Diagnostic Imaging Report ---
OLIVERIO ROME [facility] [address] [facility] [address] [address] Report Submission Date: Jan 27, 2018 8:56:29 PM CDT Patient Study Name: SILVESTRE OCHOA Date: Jan 27, 2018 8:32:11 PM CDT Modality Type: DX Gender: F Description: UPPER EXTREMITY : 40 Institution: [facility] Physician: OLIVERIO ROME Right first finger, 3 views HISTORY Fall, injury, pain, swelling. FINDINGS The hand is demineralized. Fracture at the base of the first proximal phalanx is present. There is no dislocation or abnormal bone destruction. Remainder of the osseous, joint and soft tissue structures are normal. IMPRESSION First proximal phalangeal fracture. Osteopenia. Electronically signed on Jan 27, 2018 8:56:29 PM CDT by: Juarez ARMENTA
[2018-01-28 08:54] VITALS: BP 131/69
[2018-01-28] MEDS: FUROSEMIDE 20 MG TABLET PO SCH (09:17)
[2018-01-28] MEDS: NICOTINE 21mg 1 EACH PATCH.TD24 TD SCH (09:17)
[2018-01-28] MEDS: ASPIRIN 81 MG CHEW TAB PO SCH (09:17)
[2018-01-28] MEDS: CHOLECALCIFEROL (VIT D3) 1,000 UNIT TABLET PO SCH (09:18)
[2018-01-28] MEDS: PARoxetine HCL 10 MG TABLET PO SCH (09:18)
[2018-01-28] MEDS: SENNOSIDES/DOCUSATE SODIUM 1 EACH TABLET PO SCH (09:18)
[2018-01-28] MEDS: MULTIVITAMIN 1 EACH TABLET PO SCH (09:18)
[2018-01-28] MEDS: LISINOPRIL 20 MG TABLET PO SCH (09:18)
[2018-01-28] MEDS: SULFAMETHOXAZOLE/TRIMETHOPRIM 1 EACH TABLET PO SCH (09:19)
[2018-01-28] MEDS: CALCIUM/VIT D 500MG/200IU TABLET PO SCH (09:19)
[2018-01-28] MEDS: FERROUS SULFATE 325 MG TABLET PO SCH (10:14)
[2018-01-28] MEDS: POLYETHYLENE GLYCOL 3350 17 GM POWD.PACK PO SCH (10:21)
== END 2018-01-28 11:12 | DRG 948 ==
LOC: SOUTH 18:00
PROVIDERS: ADMIT Family Medicine; ATTEND Family Medicine
DX: R53.81 Other malaise (principal); R41.0 Disorientation, unspecified; G45.9 Transient cerebral ischemic attack, unspecified; J44.9 Chronic obstructive pulmonary disease, unspecified; E11.9 Type 2 diabetes mellitus without complications
CPT/HCPCS: 36415; 71100; 73140; 80053; 81002; 85025; 87086; 87186; J1630; J1650; J1815; J2060; A9270; L3924

== ENCOUNTER 2018-03-05 13:18 | Outpatient (CLI) | payer OTHER ==
--- NOTE | 2018-03-05 19:48 | Diagnostic Imaging Report ---
[facility] [address] [facility] [address] [address] Report Submission Date: March 05, 2018 2:28:38 PM CDT Patient Study Name: SILVESTRE OCHOA Date: March 05, 2018 1:33:44 PM CDT Modality Type: CT\SR Gender: F Description: CT LEG W/O CONTRAST : 40 Institution: [facility] Physician: OLIVERIO ROME Computed tomography right hip without contrast History: 1 year of right hip pain Findings: Transverse right hip sections are obtained without contrast. Atherosclerosis and hysterectomy are noted. Early right femoral head osteophyte formation is present. There is no fracture, dislocation, focal bone lesion, or avascular necrosis. There is no evidence of significant joint or bursal effusion. Impression: Atherosclerosis and early right hip osteoarthritic spurring. Electronically signed on March 05, 2018 2:28:38 PM CDT by: Cory ARMENTA
== END 2018-03-05 13:20 ==
LOC: RAD 13:18
PROVIDERS: ATTEND Family Medicine
DX: M25.551 Pain in right hip (principal)
CPT/HCPCS: 73700

== ENCOUNTER 2018-03-16 15:19 | Outpatient (CLI) | payer OTHER | END 2018-03-16 15:21 | LOC: CARD 15:19 | PROVIDERS: ATTEND Internal Medicine Cardiovascular Disease | DX: I25.10 Atherosclerotic heart disease of native coronary artery without angina pectoris (principal); G45.9 Transient cerebral ischemic attack, unspecified; E11.9 Type 2 diabetes mellitus without complications; I10 Essential (primary) hypertension; E78.00 Pure hypercholesterolemia, unspecified; J44.9 Chronic obstructive pulmonary disease, unspecified | CPT/HCPCS: G0463 ==

== ENCOUNTER 2018-06-23 10:18 | Emergency (ER) | payer OTHER ==
--- NOTE | 2018-06-23 10:36 | ED Physician Documentation ---
General Adult - HISTORIAN Historian: patient - HPI Stated Complaint: FALL Chief Complaint: General Adult Onset: hours Timing: still present Severity: moderate Further Comments: yes (Pt is a 78 yo female who tripped and fell at her fdc. She complains of pain in her R shoulder and mid and lower back.) - ROS CONST: no problems EYES/ENT: none CVS/RESP: none GI/: none MS/SKIN/LYMPH: back pain, other (R shoulder pain) - PAST HX Past History: other (Anxiety, CAD, COPD, DM, HLD, HTN) Allergies/Adverse Reactions: Allergies Allergy/AdvReac Type Severity Reaction Status Date / Time No Known Drug Allergies Allergy Verified 06/23/18 10:30 Home Medications: Ambulatory Orders Medication Instructions Recorded Aspirin [Yon] 81 mg PO DAILY 01/12/18 Cholecalciferol [Vitamin D-3] 1,000 unit PO DAILY 01/12/18 Docusate Sodium [Colace] 100 mg PO DAILY PRN 01/12/18 Lisinopril [Zestril] 20 mg PO DAILY 01/12/18 Ferrous Sulfate [Feosol] 325 mg PO DAILY 01/18/18 Insulin Glargine,Hum.rec.anlog 15 units INJ HS 01/18/18 [Lantus Solostar] Polyethylene Glycol 3350 [Miralax] 17 gm PO 1100 01/18/18 Sennosides/Docusate Sodium 1 tab PO BID 01/18/18 [Docusate Sodium-Senna Tablet] Ipratropium/Albuterol Sulfate 3 ml NEB Q4 PRN ampul.neb 01/25/18 [Duoneb] QUEtiapine FUMARATE [Seroquel] 12.5 mg PO BID tablet 01/25/18 QUEtiapine FUMARATE [Seroquel] 25 mg PO BID tablet 01/28/18 - SOCIAL HX Smoking History: less than 1 pack/day - FAMILY HX Family History: No - VITAL SIGNS Vital Signs: Vital Signs Temp Pulse Resp BP Pulse Ox 97.6 F 62 18 156/74 92 06/23/18 10:26 06/23/18 10:26 06/23/18 10:26 06/23/18 10:06/23/18 10:26 - REVIEWED ASSESSMENTS Nursing Assessment Reviewed: Yes Vitals Reviewed: Yes Progress - Progress Progress: x-ray R shoulder: x-ray T-spine: x-ray L spine: Osteopenia, degenerative changes, and curvature. No compression deformity. Pt declines pain medications. She says she will take Tylenol at home. General Adult Physical Exam - PHYSICAL EXAM GENERAL APPEARANCE: mild distress NECK: normal inspection, supple RESPIRATORY: no resp distress, chest non-tender, breath sounds normal CVS: reg rate & rhythm, heart sounds normal ABDOMEN: soft, no organomegaly, normal bowel sounds BACK: normal inspection, no CVA tenderness SKIN: warm/dry, normal color EXTREMITIES: non-tender, normal range of motion, no evidence of injury, other (R shoulder FROM) NEURO: oriented X3, CN's nml as tested, motor nml, sensation nml Discharge Clincal Impression: Fall, musculoskeletal pain Referrals: Mercedez March MD [Primary Care Provider] - Condition: Stable Disposition: 01 HOME, SELF-CARE Decision to Admit: NO Decision Time: 11:56
[2018-06-23 11:56] VITALS: BP 132/59
--- NOTE | 2018-06-23 19:20 | Diagnostic Imaging Report ---
PATRICIA SIBLEY [facility] [address] [facility] [address] [address] Report Submission Date: Jun 23, 2018 11:33:38 AM CDT Patient Study Name: SILVESTRE OCHOA Date: Jun 23, 2018 10:48:37 AM CDT Modality Type: DX Gender: F Description: SPINE : 40 Institution: [facility] Physician: PATRICIA SIBLEY Examination: Plain film lumbar spine History: L-SPINE, LOW BACK PAIN AFTER FALL TODAY WHILE WALKING TO THE BATHROOM (Hx) Findings: 3 views of the lumbar spine demonstrates diffuse osteopenia. No anterior compression. Numerous osteophytes. Significant curvature to the left. Extensive facet degenerative changes. Atherosclerotic disease involving the abdominal aorta and iliac vessels. Impression: Osteopenia, degenerative changes, and curvature. No compression deformity. Electronically signed on Jun 23, 2018 11:33:38 AM CDT by: Doug ARMENTA
--- NOTE | 2018-06-23 19:20 | Diagnostic Imaging Report ---
PATRICIA SIBLEY [facility] [address] [facility] [address] [address] Report Submission Date: Jun 23, 2018 11:45:18 AM CDT Patient Study Name: SILEVSTRE OCHOA Date: Jun 23, 2018 10:52:36 AM CDT Modality Type: DX Gender: F Description: SHOULDER : 40 Institution: [facility] Physician: PATRICIA SIBLEY Examination: Plain film right shoulder History: RT SHOULDER, PAIN IN RT SHOULDER AFTER FALL TODAY WHILE WALKING TO THE BATHROOM Comparison exams: None provided Findings: 3 views of the right shoulder demonstrates diffuse osteopenia. Advanced articular degenerative changes. Ossific lucency involving the medial margin of the humeral head - likely representing a large osteophyte. No evidence for displaced fracture or dislocation. Impression: Extensive osteopenia and articular degenerative changes. No obvious displaced fracture. If concern still exists for possible fracture, consider obtaining CT shoulder to better evaluate cortical margins. Electronically signed on Jun 23, 2018 11:45:18 AM CDT by: Doug ARMENTA
--- NOTE | 2018-06-23 19:21 | Diagnostic Imaging Report ---
PATRICIA SIBLEY [facility] [address] [facility] [address] Report Submission Date: Jun 23, 2018 11:39:20 AM CDT Patient Study Name: SILVESTRE OCHOA Date: Jun 23, 2018 10:50:09 AM CDT Modality Type: DX Gender: F Description: SPINE : 40 Institution: [facility] Physician: PATRICIA SIBLEY Examination: Plain film thoracic spine History: T-SPINE, MID BACK PAIN AFTER FALL TODAY WHILE WALKING TO THE BATHROOM (Hx) Findings: 3 views of the thoracic spine demonstrates diffuse osteopenia. No anterior compression. Osteophyte formation. Curvature to the right. No soft tissue abnormalities. Impression: Osteopenia, degenerative disease, and curvature. No compression deformity. Electronically signed on Jun 23, 2018 11:39:20 AM CDT by: Doug ARMENTA
== END 2018-06-23 11:54 | disposition home or self-care (01) ==
LOC: ED 10:18
DX: M79.1 Myalgia (principal); W19.XXXA Unspecified fall, initial encounter; Y92.129 Unspecified place in nursing home as the place of occurrence of the external cause; Y93.9 Activity, unspecified; Y99.9 Unspecified external cause status
CPT/HCPCS: 72072; 72100; 73030

== ENCOUNTER 2018-10-22 18:04 | Emergency (ER) | payer OTHER ==
--- NOTE | 2018-10-22 18:11 | ED Physician Documentation ---
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 pt presents to the ED via EMS c/o unwitnessed fall at NH home while attempting to transfer self from bed to w/c. pt landed on face with Right periorbital pain/swelling, 08/11. pt denies loc. Pt is a/ox 3 at this time. pt reports mild blurry vision although she has this at baseline. pt denies current chest pain, dyspnea, syncope/near syncope, headache, dizziness, n/v/d, fever/chills, rash, sick contacts, dysuria, trauma. melena or hematochezia, bleeding or easy bruising, change in bowel or bladder function, no recent weight loss/gain, anxiety or depression. ROS Negative unless otherwise specified. Onset: just prior to arrival Where: other ([place]) Associated Symptoms:: no loss of consciousness Location of Pain/Injury: face - ROS CONST: no problems - SOCIAL HX Smoking History: non-smoker Alcohol Use: none Drug Use: none - FAMILY HX Family History: none - VITAL SIGNS Vital Signs: Vital Signs Temp Pulse Resp BP Pulse Ox 156/74 06/23/18 11:54 - REVIEWED ASSESSMENTS Nursing Assessment Reviewed: Yes Vitals Reviewed: Yes <Marjorie Navarro - Last Filed: 10/22/18 19:11> - HISTORIAN Historian: patient, child - PAST HX Past History: cardiac disease Immunizations: UTD - VITAL SIGNS Vital Signs: Vital Signs Temp Pulse Resp BP Pulse Ox 156/74 06/23/18 11:54 <Eulalia Nelson - Last Filed: 10/23/18 07:05> - PAST HX Allergies/Adverse Reactions: Allergies Allergy/AdvReac Type Severity Reaction Status Date / Time No Known Drug Allergies Allergy Verified 10/22/18 19:51 Home Medications: Ambulatory Orders Medication Instructions Recorded Aspirin [Yon] 81 mg PO DAILY 01/12/18 Cholecalciferol [Vitamin D-3] 1,000 unit PO DAILY 01/12/18 Docusate Sodium [Colace] 100 mg PO DAILY PRN 01/12/18 Lisinopril [Zestril] 20 mg PO DAILY 01/12/18 Ferrous Sulfate [Feosol] 325 mg PO DAILY 01/18/18 Insulin Glargine,Hum.rec.anlog 15 units INJ HS 01/18/18 [Lantus Solostar] Polyethylene Glycol 3350 [Miralax] 17 gm PO 1100 01/18/18 Ipratropium/Albuterol Sulfate 3 ml NEB Q4 PRN ampul.neb 01/25/18 [Duoneb] Alendronate Sodium [Fosamax] 1 tab PO WEEK 10/22/18 Atenolol [Tenormin] 1 tab PO DAILY 10/22/18 Atorvastatin Calcium [Lipitor] 40 mg PO DAILY 10/22/18 Calcium Carbonate/Vitamin D3 1 tab PO DAILY 10/22/18 [Calcium 500-Vit D3 200 Tablet] Donepezil HCl [Aricept] 1 tab PO HS 10/22/18 Furosemide [Lasix] 1 tab PO DAILY 10/22/18 Glipizide 1 tab PO DAILY 10/22/18 Ondansetron [Zuplenz] 1 tab SQ PRN PRN 10/22/18 QUEtiapine FUMARATE [Seroquel] 2 mg PO BID 10/22/18 Progress - Progress Progress: pt care and Report to Eulalia Esteban [employer] <Marjorie Navarro - Last Filed: 10/22/18 19:11> - Progress Progress: 1919: care assumed. Pain is mild on right face/eye area. DG 1929: assessment complete Large bruise /hematoma on right eye orbit approx 6 cm in size purple color. Pupil does react equally to left eye. she reports vision is changed due to "seeing the swelling in the eye" . she is alert. No other pain. Mild right hip pain although she reports this is chronic. Overall survey does not result in any obvious injuries. She denies any dizziness or other weakness complaints. Daughter at bedside states she has no new issues that she can recall from initial report. DG 1999: reports pain is "better" DG 2019: discussed results and plan. She is agreeable DG <Eulalia Nelson - Last Filed: 10/23/18 07:05> ED Results Lab/Radiology - Radiology Radiology Impressions: Computed tomography head without contrast History: Fall with forehead contusion Findings: Transverse brain sections are obtained without contrast revealing a large right frontal scalp contusion extending into the preseptal periorbital region. Mild cerebellar and moderate cerebral atrophy is observed. Extensive chronic small vessel ischemic gliosis is present in cerebral white matter. There is no intracranial hemorrhage or skull fracture. Impression: 1. Large right frontal scalp hematoma without intracranial hemorrhage or skull fracture. 2. Chronic senescent brain changes. Electronically signed on Oct 22, 2018 7:24:47 PM DIETARY CLERK by: Cory Camara Computed tomography facial bones without contrast History: Fall with right facial injury Findings: Transverse mandible and facial bones sections are obtained without contrast revealing a large right frontal scalp hematoma extending into the preseptal periorbital region. The patient is edentulous. The mandible and facial bones are intact. Chronic left sphenoid sinusitis is observed. There is no evidence of globe rupture or orbital hemorrhage. Lens replacements and chronic senescent brain changes are noted. Impression: 1. Large right frontal scalp/preseptal periorbital hematoma without fracture. 2. Chronic left sphenoid sinusitis. Electronically signed on Oct 22, 2018 7:26:36 PM DIETARY CLERK by: Cory Camara Computed tomography cervical spine without contrast History: Fall with head injury Findings: Transverse cervical spine sections are obtained without contrast. Bilateral carotid calcific plaque is observed. Mild multilevel bilateral facet arthropathy is most advanced on the left at C3-4. Advanced degenerative disc disease is present at C2-3, C4-5, C5-6, and C6-7. Multilevel foraminal stenosis is observed. There is no evidence of fracture, subluxation, or paraspinal swelling. Impression: Advanced multilevel cervical spondylosis without fracture. Electronically signed on Oct 22, 2018 7:28:39 PM DIETARY CLERK by: Cory Camara Portable chest History: Fall Findings: Sternotomy, mild hyperinflation, and mild cardiomegaly are observed. There is no infiltrate, pleural effusion, or pneumothorax. Impression: Sternotomy, cardiomegaly, and hyperinflation. Electronically signed on Oct 22, 2018 7:29:25 PM DIETARY CLERK by: Cory Camara Right hip two views History: Pain after fall Findings: The exam is extremely limited due to morbid obesity such that a nondisplaced femoral neck fracture cannot be excluded. Consider a repeat coned down, collimated view of the right hip while the patient raises her abdominal panniculus above the hip level. Once obtained, an addendum can be provided to this report. Electronically signed on Oct 22, 2018 7:31:24 PM DIETARY CLERK by: Cory Camara Right hip two views History: Pain after fall Findings: The exam is extremely limited due to morbid obesity such that a nondisplaced femoral neck fracture cannot be excluded. Consider a repeat coned down, collimated view of the right hip while the patient raises her abdominal panniculus above the hip level. Once obtained, an addendum can be provided to this report. Electronically signed on Oct 22, 2018 7:31:24 PM DIETARY CLERK by: Cory Camara 2 views right hip Right hip pain Findings: No hip fractures identified. Alignment and joint is maintained. Atherosclerotic plaque is noted. Impression: Negative Addendum electronically signed by Raymon Thompson on October 22, 2018 8:16:24 PM DIETARY CLERK - Orders Orders: ED Orders Category Date Time Status Continuous EKG monitoring Q30M Care 10/22/18 18:17 Active Continuous Pulse Oximetry Q30M Care 10/22/18 18:[address] IV Lock 1T Care 10/22/18 18:17 Active CHEST 1VIEW [RAD] Stat Exams 10/22/[address] BRAIN W/O CONTRAST Stat Exams 10/22/[address] C-SPINE W/O CONTRAST Stat Exams 10/22/[address] MAXILLOFACIAL W/O DYE Stat Exams 10/22/18 Ordered RT HIP 2VIEW COMPLETE [RAD] Stat Exams 10/22/18 Ordered CBC/PLATELET/DIFF Routine Lab 10/22/18 Ordered CMP [CMP] Routine Lab 10/22/18 Ordered UA [URINALYSIS] Routine Lab 10/22/18 Ordered EKG WITH COMPARISON Stat Ther 10/22/18 Ordered <Eulalia Nelson - Last Filed: 10/23/18 07:05> Fall Physical Exam - Physical Exam General Appearance: no acute distress, alert Head: trauma (Right periorbital edema/ecchymosis/tenderness ) Neck: non-tender, painless ROM, trachea midline Eye: CLINT, EOMI. No: subconjunctival hemorrhag ENT: nml external inspection, no oral injury, airway nml Resp/CVS: chest non-tender, no ecchymosis, breath sounds nml, no resp. distress, heart sounds nml Abdomen: soft, normal bowel sounds, no abdominal bruit, no distension Neuro: oriented x3, CN's nml as tested, sensation nml, motor nml, mood/affect nml, embedded linux developer nml, reflexes nml, embedded linux developer symmetrical Skin: color nml, ecchymosis Back: normal inspection, no CVA tenderness, no vertebral tenderness Extremities: pelvis stable, nml color/temp, unable to bear weight (at baseline ), other (Right hip tender to palp. Mild shortening. +pedal pulse bilat) - [place] Coma Score Eyes Open: Spontaneous Speech: Oriented Motor: Obeys Commands <Marjorie Navarro - Last Filed: 10/22/18 19:11> Discharge <Marjorie Navarro - Last Filed: 10/22/18 19:11> Comments: 1. Macrobid 100 mg take 1 by mouth twice daily x 10 days 2. No caffeine 3. Ice to right eye 4. OTC meds as directed for pain 5. Follow up with PCP in 2-4 days 6. Return to ER for any concerns Decision to Admit: NO Date of Decison to Admit: 10/22/18 Decision Time: 20:27 <Eulalia Nelson - Last Filed: 10/23/18 07:05> Clincal Impression: Fall Qualifiers: Encounter type: initial encounter Qualified Code(s): W19.XXXA - Unspecified fall, initial encounter Contusion of right orbit Qualifiers: Encounter type: initial encounter Qualified Code(s): S05.11XA - Contusion of eyeball and orbital tissues, right eye, initial encounter UTI (urinary tract infection) Qualifiers: Urinary tract infection type: site unspecified Hematuria presence: without hematuria Qualified Code(s): N39.0 - Urinary tract infection, site not specified Referrals: Mercedez March MD [Primary Care Provider] - 2 Days Condition: Stable Disposition: 01 HOME, SELF-CARE
[2018-10-22 19:47] VITALS: BP 166/57
[2018-10-22] MEDS: KETOROLAC TROMETHAMINE 30 MG/1ML VIAL IVP ONE (19:50)
[2018-10-22 20:11] LABS: eGFR (Non-African) > 60
[2018-10-22 20:12] LABS: MEAN CORPUSCULAR HEMOGLOBIN 28.3 pg (28.0-34.0)
[2018-10-22 20:13] LABS: BASOPHILS % 0.5 (0.0-1.5); EOSINOPHILS % 5.6 % (0.0-6.8); MONOCYTES % 6.8 % (0.0-11.0); NEUTROPHILS # 3.5 # k/uL (1.4-7.7)
[2018-10-22] MEDS: NITROFURANTOIN MONO/MACRO 100 MG CAPSULE PO ONE (20:30)
[2018-10-22 20:31] LABS: APPEARANCE,URINE CLEAR (CLEAR); COLOR,URINE YELLOW (YELLOW); OCCULT BLOOD,URINE NEGATIVE (NEGATIVE); PH URINE 5.5 (5.0 - 8.0)
[2018-10-22 20:32] LABS: UROBILINOGEN URINE 0.2 Eu (0.2-1.0)
--- NOTE | 2018-10-23 07:13 | Diagnostic Imaging Report ---
EDSON ALCOCER [facility] [address] [facility] [address] [address] Report Submission Date: Oct 22, 2018 7:24:47 PM TRACK HELPER Patient Study Name: SILVESTRE OCHOA Date: Oct 22, 2018 6:29:00 PM TRACK HELPER Modality Type: CT\SR Gender: F Description: CT BRAIN W/O CONTRAST : 40 Institution: [facility] Physician: EDSON ALCOCER Computed tomography head without contrast History: Fall with forehead contusion Findings: Transverse brain sections are obtained without contrast revealing a large right frontal scalp contusion extending into the preseptal periorbital region. Mild cerebellar and moderate cerebral atrophy is observed. Extensive chronic small vessel ischemic gliosis is present in cerebral white matter. There is no intracranial hemorrhage or skull fracture. Impression: 1. Large right frontal scalp hematoma without intracranial hemorrhage or skull fracture. 2. Chronic senescent brain changes. Electronically signed on Oct 22, 2018 7:24:47 PM TRACK HELPER by: Cory ARMENTA
--- NOTE | 2018-10-23 07:14 | Diagnostic Imaging Report ---
EDSON ALCOCER [facility] [address] [facility] [address] [address] Report Submission Date: Oct 22, 2018 7:26:36 PM HEALTH SERVICES INFORMATION SPECIALIST Patient Study Name: SILVESTRE OCHOA Date: Oct 22, 2018 6:32:49 PM HEALTH SERVICES INFORMATION SPECIALIST Modality Type: CT\SR Gender: F Description: CT MAXILLOFACIAL W/O D : 40 Institution: [facility] Physician: EDSON ALCOCER Computed tomography facial bones without contrast History: Fall with right facial injury Findings: Transverse mandible and facial bones sections are obtained without contrast revealing a large right frontal scalp hematoma extending into the preseptal periorbital region. The patient is edentulous. The mandible and facial bones are intact. Chronic left sphenoid sinusitis is observed. There is no evidence of globe rupture or orbital hemorrhage. Lens replacements and chronic senescent brain changes are noted. Impression: 1. Large right frontal scalp/preseptal periorbital hematoma without fracture. 2. Chronic left sphenoid sinusitis. Electronically signed on Oct 22, 2018 7:26:36 PM HEALTH SERVICES INFORMATION SPECIALIST by: Cory ARMENTA
--- NOTE | 2018-10-23 07:15 | Diagnostic Imaging Report ---
EDSON ALCOCER [facility] [address] [facility] [address] [place] [address]. [address] Report Submission Date: Oct 22, 2018 7:28:39 PM ADMIN SECRETARY Patient Study Name: SILVESTRE OCHOA Date: Oct 22, 2018 6:36:22 PM ADMIN SECRETARY Modality Type: CT\SR Gender: F Description: CT C-SPINE W/O CONTRAS : 40 Institution: [facility] Physician: EDSON ALCOCER Computed tomography cervical spine without contrast History: Fall with head injury Findings: Transverse cervical spine sections are obtained without contrast. Bilateral carotid calcific plaque is observed. Mild multilevel bilateral facet arthropathy is most advanced on the left at C3-4. Advanced degenerative disc disease is present at C2-3, C4-5, C5-6, and C6-7. Multilevel foraminal stenosis is observed. There is no evidence of fracture, subluxation, or paraspinal swelling. Impression: Advanced multilevel cervical spondylosis without fracture. Electronically signed on Oct 22, 2018 7:28:39 PM ADMIN SECRETARY by: Cory ARMENTA
--- NOTE | 2018-10-23 07:16 | Diagnostic Imaging Report ---
EDSON ALCOCER [facility] [address] [facility] [address] [address] Report Submission Date: Oct 22, 2018 7:29:25 PM BOILER BLOWER Patient Study Name: SILVESTRE OCHOA Date: Oct 22, 2018 6:50:12 PM BOILER BLOWER Modality Type: DX Gender: F Description: CHEST : 40 Institution: [facility] Physician: EDSON ALCOCER Portable chest History: Fall Findings: Sternotomy, mild hyperinflation, and mild cardiomegaly are observed. There is no infiltrate, pleural effusion, or pneumothorax. Impression: Sternotomy, cardiomegaly, and hyperinflation. Electronically signed on Oct 22, 2018 7:29:25 PM BOILER BLOWER by: Cory ARMENTA
--- NOTE | 2018-10-23 07:17 | Diagnostic Imaging Report ---
EDSON ALCOCER [facility] [address] [facility] [address] [place] [id number]. [id number] Report Submission Date: Oct 22, 2018 7:31:24 PM COMPUTER INSTRUCTOR Patient Study Name: SILVESTRE OCHOA Date: Oct 22, 2018 6:38:02 PM COMPUTER INSTRUCTOR Modality Type: DX Gender: F Description: PELVIS : 40 Institution: [facility] Physician: EDSON ALCOCER Right hip two views History: Pain after fall Findings: The exam is extremely limited due to morbid obesity such that a nondisplaced femoral neck fracture cannot be excluded. Consider a repeat coned down, collimated view of the right hip while the patient raises her abdominal panniculus above the hip level. Once obtained, an addendum can be provided to this report. Electronically signed on Oct 22, 2018 7:31:24 PM COMPUTER INSTRUCTOR by: Cory Camara 2 views right hip Right hip pain Findings: No hip fractures identified. Alignment and joint is maintained. Atherosclerotic plaque is noted. Impression: Negative Addendum electronically signed by Raymon Thompson on October 22, 2018 8:16:24 PM COMPUTER INSTRUCTOR [facility]
== END 2018-10-22 21:11 | disposition home or self-care (01) ==
LOC: ED 18:04
DX: S05.11XA Contusion of eyeball and orbital tissues, right eye, initial encounter (principal); M25.551 Pain in right hip; B96.20 Unspecified Escherichia coli [E. coli] as the cause of diseases classified elsewhere; W06.XXXA Fall from bed, initial encounter; Y93.89 Activity, other specified; Y92.122 Bedroom in nursing home as the place of occurrence of the external cause; Z79.899 Other long term (current) drug therapy
CPT/HCPCS: 36415; 70450; 70486; 71045; 72125; 73502; 80053; 81002; 85025; 87086; 87186; 93005; 96374; 99284; 99285; J1885; S1016